=== PATIENT | male | born 1990 | race Two or more races ===

== ENCOUNTER 2019-10-23 08:38 | Outpatient (CLI) | payer OTHER | END 2019-10-23 08:47 | disposition home or self-care (01) | LOC: SONOGRAMA 08:38 | PROVIDERS: ATTEND Internal Medicine Gastroenterology | DX: R10.12 Left upper quadrant pain (principal) ==

== ENCOUNTER 2021-02-05 08:00 | Outpatient (CLI) | payer OTHER | END 2021-02-05 08:15 | disposition home or self-care (01) | LOC: PPH VACUNA 08:00 | PROVIDERS: ATTEND Emergency Medicine Pediatric Emergency Medicine | DX: Z23 Encounter for immunization (principal) ==

== ENCOUNTER 2023-05-31 11:42 | Emergency (ER) | payer OTHER ==
[~2023-05-31] VITALS: Ht 177.8 cm; Wt 77.1 kg
[2023-05-31] MEDS ORDERED: LIDOCAINE HCL 100 MG/10ML VIAL PERCUT ONE (14:30)
[2023-05-31] MEDS ORDERED: DUI500 PO (15:07)
== END 2023-05-31 15:18 | disposition home or self-care (01) ==
LOC: ER 11:42
DX: S61.214A Laceration without foreign body of right ring finger without damage to nail, initial encounter (principal); W45.8XXA Other foreign body or object entering through skin, initial encounter; Y93.9 Activity, unspecified; Y92.019 Unspecified place in single-family (private) house as the place of occurrence of the external cause